=== PATIENT | male | born 1945 | race Caucasian/White ===

== ENCOUNTER 2020-10-18 10:25 | Emergency (ER) | payer OTHER ==
[~2020-10-18] VITALS: Ht 177.8 cm; Wt 83.9 kg
[2020-10-18] MEDS ORDERED: BENICAR5 MG (10:37)
[2020-10-18] MEDS ORDERED: ETODOLAC400 M1 (10:37)
[2020-10-18] MEDS ORDERED: PRILOSEC OTC20 MG (10:38)
[2020-10-18] MEDS ORDERED: CHILDREN'S ASPI81 MG (10:38)
== END 2020-10-18 11:57 | disposition home or self-care (01) ==
LOC: ER 10:25
DX: H61.23 Impacted cerumen, bilateral (principal)